=== PATIENT | female | born 1985 | race Two or more races ===

== ENCOUNTER → 2019-01-22 | Outpatient (CLI) | payer OTHER ==
[2015-05-01 15:13] VITALS: BP 97/62
[~2019-01-22] MED LIST: PNV1TABL25 PO
--- NOTE | 2019-01-22 13:28 | RAD ---
EXAM: Obstetrics sonogram. HISTORY: Surveillance of normal . TECHNIQUE: Sonographic imaging of a gravid uterus was performed. COMPARISON: None. FINDINGS: There is a single intrauterine fetus in cephalic presentation with a heart rate of 157 bpm. The stomach, kidneys, bladder, spine, brain, facial profile, extremities and heart are unremarkable. There is a three-vessel umbilical cord with normal insertion. There is a posterior placenta without evidence of placenta previa. The cervix measures 5.8 cm in length. The biparietal diameter is 5.31 cm, corresponding with 22 weeks and 1 day. The head circumference is 19.27 cm, corresponding with 21 weeks and 4 days. The abdominal circumference is 17.59 cm, corresponding with 22 weeks and 3 days. The femoral length is 3.69 cm, corresponding with 21 weeks and 5 days. The estimated gestational age patient combined ultrasound measurements is 20 weeks and 0 days. The estimated weight is 476 g. This corresponds with the 48th percentile for an estimated gestational age of 20 weeks and 0 days based on LMP. The estimated due date is 05/28/2019. IMPRESSION: Single intrauterine fetus with an estimated gestational age of 20 weeks and 0 days and heart rate of 157 bpm. Unremarkable anatomy survey. Electronically signed by: Myra France MD (01/22/2019 1:25 PM) [place] [id number]
== END | disposition home or self-care (01) ==
LOC: US 13:04
PROVIDERS: ATTEND Family Medicine
DX: O09.92 Supervision of high risk pregnancy, unspecified, second trimester (principal); Z3A.20 20 weeks gestation of pregnancy
CPT/HCPCS: 76805

== ENCOUNTER → 2020-04-08 | Outpatient (CLI) | payer OTHER ==
[2015-05-01 15:13] VITALS: BP 97/62
--- NOTE | 2020-04-08 17:13 | RAD ---
OB ultrasound greater than 14 weeks 04/08/2020 Clinical History: survey. Technique: A real-time ultrasound examination of the gravid uterus was performed. Multiple images were obtained. Findings: There is a single living IUP. The fetus is in a cephalic position. cardiac and somatic activity is seen. The heart rate is 136 beats per minutes. The maternal cervix is closed. It measures 4.38 cm in length. The placenta is in a fundal position. No abnormality is seen. The amniotic fluid volume is within normal limits. The following measurements were obtained: BPD 6.90cm 27 weeks 5 days HC 24.93 cm 27weeks 0 days AC 22.43 cm 26weeks 6 days FL 5.07 cm 27 weeks 1 days The estimated gestational age by ultrasound is 27 weeks 1 days plus or minus a standard deviation of 15 days. The estimated date of delivery by ultrasound is 07/07/2020. No abnormality is seen. Specifically the stomach, bladder, kidneys, 3 vessel cord and cord insertion, four-chamber heart, cisterna magna, cerebellum, nose/mouth, spine and extremities are well-visualized and within normal limits. Impression: Single living IUP with an estimated gestational age by ultrasound of 27 weeks1 days +/- a standard deviation of 15 days. The estimated date of delivery by ultrasound is 07/07/2020. Electronically signed by: Facundo Taylor MD (04/08/2020 5:10 PM) [id number]
== END ==
LOC: US 15:49
PROVIDERS: ATTEND Family Medicine
DX: Z34.92 Encounter for supervision of normal pregnancy, unspecified, second trimester (principal); Z3A.27 27 weeks gestation of pregnancy
CPT/HCPCS: 76805

== ENCOUNTER → 2020-06-20 | Outpatient (CLI) | payer BC, OTHER ==
[2015-05-01 15:13] VITALS: BP 97/62
--- NOTE | 2020-06-20 16:09 | RAD ---
EXAM: Limited OB Ultrasound INDICATION: Reason: check position / Spl. Instructions: / History: TECHNIQUE: Real-time limited obstetrical ultrasound was performed with permanent freeze-frame documen tation. COMPARISON: OB ultrasound of 04/08/2020 FINDINGS: Based on LMP of 09/21/2019, Clinical age is 39 weeks 0 days and an estimated delivery date of June 27, 2020. Single live intrauterine gestation is redemonstrated. POSITION: Cephalic HEART RATE: 156 bpm MORGAN: 13.9 cm PLACENTA: Posterior fundal, grade 2 Biparietal diameter of 9.5 cm corresponds to 39 weeks 0 days Head circumference of 34.0 cm corresponding to 39 weeks 1 day Abdominal circumference of 34.5 cm corresponds with 38 weeks and 2 days Femoral length of 7.2 cm corresponds to 37 weeks 0 days Average ultrasound age is 38 weeks 3 days with an estimated ultrasound delivery date of July 01. Estimated weight is 3432 +/- 508 g. This is at the 53rd percentile for weight IMPRESSION: Single live intrauterine gestation in cephalic presentation at 38 weeks 3 days sonographic gestationa l age with an estimated delivery date of July 01, 2020. Electronically signed by: Marycruz Cates MD (06/20/2020 4:07 PM) [id number]
== END ==
LOC: US 10:04
PROVIDERS: ATTEND Family Medicine
DX: O32.1XX0 Maternal care for breech presentation, not applicable or unspecified (principal); Z3A.38 38 weeks gestation of pregnancy
CPT/HCPCS: 76805